=== PATIENT | male | born 1935 | race Caucasian/White ===

== ENCOUNTER → 2017-07-08 | Outpatient (CLI) | payer OTHER, BC | LOC: FIMAGING 13:14 | PROVIDERS: ATTEND Internal Medicine | DX: S42.291A Other displaced fracture of upper end of right humerus, initial encounter for closed fracture (principal); G31.9 Degenerative disease of nervous system, unspecified ==

== ENCOUNTER 2017-07-09 16:14 | Inpatient (IN) | payer OTHER, BC ==
--- NOTE | 2017-07-09 16:47 | EDPHY ---
H & P Stated Complaint: fall - Personal History Current Tetanus/Diphtheria Vaccine: Unsure Current Tetanus Diphtheria and Acellular Pertussis (TDAP): Unsure - Medical/Surgical History Hx Asthma: No Hx Chronic Respiratory Disease: No Hx Diabetes: No Hx Cardiac Disease: No Hx Renal Disease: No Hx Cirrhosis: No Hx Alcoholism: No Hx HIV/AIDS: No Hx Splenectomy or Spleen Trauma: No Other PMH: alzheimers, prostate CA - Social History Smoking Status: Never smoked Time Seen by Provider: 07/09/17 16:29 Constitutional: Initial Vital Signs Heart Rate 75 07/09/17 16:21 Respiratory Rate 16 07/09/17 16:21 Blood Pressure 114/72 07/09/17 16:21 O2 Sat (%) 98 07/09/17 16:21 O2 Delivery Mode Room Air Allergies/Adverse Reactions: No Known Allergies Allergy (Unverified 07/09/17 18:42) Home Medications: Medication Instructions Recorded Alendronate Sodium [Fosamax 70 MG 70 mg PO SPRAGUE@0700 07/09/17 (*)] Aspirin [Aspirin 81mg (*)] 81 mg PO DAILY 07/09/17 Escitalopram Oxalate [Lexapro] 20 mg PO DAILY 07/09/17 Herbals/Supplements -Info Only 1 ea PO DAILY 07/09/17 Ibuprofen [Motrin (*)] 400 mg PO Q6 PRN 07/09/17 Multivitamins [Multivitamin (*)] 1 each PO DAILY 07/09/17 [place]-3 Ethyl Est-Lovaza [Lovaza 1 1 gm PO DAILY 07/09/17 gm (*)] Medical Decision Making - Diagnostics Imaging: Discussed imaging studies w/ body recall instructor Radiologist, I viewed and interpreted images myself - Diagnostics Imaging Results: Imaging Impressions Head CT 07/09/17 16:30 Impression: 1. No acute intracranial findings. 2. Unchanged diffuse cerebral atrophy with periventricular and subcortical predominant white matter changes compatible with chronic small vessel ischemia. Findings and recommendations discussed with Jamaal Vinson MD at 1654 hour, . Extremity CT 07/09/17 16:32 Impression: Comminuted right humeral neck fracture with displaced fractures of the greater and lesser tuberosities (Neer 2 classification). Procedures: 5:15 p.m. My involvement the care this patient is solely for procedure. Please see the note of the attending physician for all other aspects of care. I Was asked to see the patient for the scalp laceration. Laceration did need to be closed with stevo. I have anesthetize the wound. It was copiously irrigated. I then closed the wound with good approximation wound border. This was tolerated without complication. We discussed wound care. We discussed staple removal in 10 days here at this facility. PROCEDURE: Laceration repair Consent: Verbal Location: Posterior scalp, just below the occiput Length of repair: 3 cm Complexity: Complex Layer involvement: Single Anesthesia: Local per 1% lidocaine with epinephrine. 5 mL Irrigation: Extensive Debridement: None Procedure description: Following good anesthesia, the wound was copiously irrigated. Wound bed was explored with a sterile glove, and there is no foreign body noted. No compromise of the galea. No foreign body.. Wound borders were approximated well with good hemostasis. Tolerated well without complication. Suture/Staple material: Stevo, #4 Wound care: Routine as discussed Suture/Staple removal: 10 Days ([place]) ED Course/Re-evaluation: CHIEF COMPLAINT: Head laceration, frequent falls, syncope, CT of broken right humerus HISTORY OF PRESENT ILLNESS: The patient is an 81 y/o male with a history of Alzheimer's disease arriving for multiple falls, fractured right proximal humerus, and a head laceration. The patient resides with his . Yesterday, he had a syncopal event, and fell, resulting in a fractured proximal humerus. At that time, he was evaluated as an outpatient and determined to have a fractured proximal humerus. Today, Dr. Johnson sent him to the emergency department for a CT to further evaluate fracture. His reports that the syncopal episodes have been frequent over the past few days and that he fell again this morning, which resulted in a laceration to the occiput. She reports she has not been able to sleep in 24 hours due to him needing monitoring for falls and his frequently getting up from bed. Information obtained from his due to the patient's Alzheimer's disease. REVIEW OF SYSTEMS: A 10 point review of systems was performed and is negative with the exception of the elements mentioned in the history of present illness. PHYSICAL EXAM: HR, BP, O2 Sat, RR. Temp noted General Appearance: Alert, well hydrated, appropriate, and non-toxic appearing. Head: 3cm transverse laceration to the occiput, not bleeding Eyes: Pupils equal, round, reactive to light and accommodation, EOMI, no trauma , no injection. Ears: Clear bilaterally, no perforation, normal landmarks Nose: Atraumatic, no rhinorrhea, clear. Throat: There is no erythema or exudates, no lesions, normal tonsils, mucus membranes moist. Neck: Supple, 2+ carotid upstroke, nontender, no lymphadenopathy. Respiratory: No retractions, no distress, no wheezes, and no accessory muscle use. Lungs are clear to auscultation bilaterally. Cardiovascular: Regular rate and rhythm, no murmurs, rubs, or gallops. Bilateral carotid, radial, dorsalis pedis, and posterior tibial pulses intact. Good capillary refill all extremities. Gastrointestinal: Abdomen is soft, nontender, non-distended, no masses, no rebound, no guarding, no peritoneal signs. Musculoskeletal: Right shoulder deformed. Neurological: Alert, appropriate, and interactive. Skin: No rashes, good turgor, no nodules on palpation. Past medical history: Alzheimer's disease Past surgical history: Denies Family history: Non-contributory Social history: at bedside, lives in [place], retired DIAGNOSTICS/PROCEDURES/CRITICAL CARE TIME: The 12 lead EKG was interpreted by myself. Sinus mechanism, rate 70. See hard copy and/or "tracemaster" electronic copy for interpretation. DIFFERENTIAL DIAGNOSIS: The differential diagnosis for the patient's dizziness included but was not limited to peripheral and central causes of vertigo, orthostatic causes including dehydration, cardiogenic and neurogenic causes, and blood loss. MEDICAL DECISION MAKING: The patient presents with a transverse laceration to the occiput and a proximal humeral head fracture after several syncopal events with falls in the last two days. He was evaluated as an outpatient for a fall yesterday, and was diagnosed with a proximal humeral head fracture. The orthopedic surgeon involved in care requested a CT to determine treatment needs. His fall today resulted in the transverse occipital laceration. His reports that he has been having more syncopal events and falls recently, prompting her to not be able to sleep in the last 24 hours due to her need to provide care. Information obtained through . Plan for EKG, urinalysis, urine culture, CBC, basic metabolic panel, CT of head and right upper extremity without contrast. 1658: The patient's head CT is negative for acute findings. His right shoulder will be treated by ortho. Laceration has been repaired by [facility]. Due to his frequent falls and the burden of care the is experiencing, I feel he will need to be admitted so that a care plan with more aid for the can be established. She agrees to this course of treatment but is concerned that he be monitored constantly as he is prone to wandering. Dr. Fitzpatrick will be the admitting physician. He will have a sitter coordinated with the nurses on the floor. (Jamaal Vinson) Departure - Departure Disposition: [facility] In[facility] Acute Clinical Impression: Frequent falls Syncope Qualifiers: Syncope type: unspecified Qualified Code(s): R55 - Syncope and collapse Broken shoulder Qualifiers: Encounter type: initial encounter Fracture type: closed Laterality: right Qualified Code(s): S42.91XA - Fracture of right shoulder girdle, part unspecified, initial encounter for closed fracture Laceration of head Qualifiers: Encounter type: initial encounter Location of open wound of head: scalp Foreign body presence: without foreign body Qualified Code(s): S01.01XA - Laceration without foreign body of scalp, initial encounter Condition: Fair Report Scribed for: Jamaal Vinson Report Scribed by: Shantel Wooten Date of Report: 07/09/17 Time of Report: 17:00
[2017-07-09 17:55] LABS: PLATELET COUNT 209 10^3/uL (150-400)
--- NOTE | 2017-07-09 18:40 | CPEKG ---
Heart Rate: 70 RR Interval: 857 P-R Interval: 156 QRSD Interval: 90 QT Interval: 404 QTC Interval: 436 P [place]: 52 QRS [place]: 47 T Wave [place]: 39 EKG Severity - OTHERWISE NORMAL ECG - EKG Impression: SINUS RHYTHM EKG Impression: LOW VOLTAGE IN FRONTAL LEADS Electronically Signed By: James Okeefe 09-Jul-2017 20:34:44
[2017-07-09] MEDS ORDERED: ONDANSETRON DISINTEGRATING 4 MG TAB PO PRN (20:17)
[2017-07-09] MEDS ORDERED: ONDANSETRON 4 MG/2 ML VIAL IVP PRN (20:17)
[2017-07-09] MEDS ORDERED: ACETAMINOPHEN 325 MG TAB PO PRN (20:17)
[2017-07-09] MEDS ORDERED: NS 1,000 ML IV SCH (20:30)
--- NOTE | 2017-07-09 21:08 | GHP ---
[f rep st] HISTORY AND PHYSICAL DATE OF ADMISSION: 07/09/2017 HISTORY OF PRESENT ILLNESS: The patient is an 81-year-old gentleman with a history of Alzheimer scooter ntia who has had 2 falls. He had a fall yesterday where he was getting up and he fell and he landed on his right side, hitting his arm and his head. According to his , from whom I obtained most of the history, he had a brief episode of loss of consciousness thereafter and then he came to spontane ously. She felt his pulse became thready during that time. Following a 2nd fall today, she brought him to a primary care physician and then an orthopedist, where he was diagnosed with a right humerus fracture. During his 2nd fall, he also had loss of consciousness thereafter with transient loss of p ulse, according to his . He has minimal cardiopulmonary morbidity but does have a history of Alz heimer dementia and has a hard time with ADLs. His confirms a do not resuscitate status, but it sounds like this is the 1st time that discussion has been had. REVIEW OF SYSTEMS: Complete 10-point review of systems conducted. Negative except as noted in the H PI. PAST MEDICAL HISTORY: Hyperlipidemia and osteoporosis. ALLERGIES: There are no known drug allergies. HOME MEDICATIONS: Alendronate, aspirin, ibuprofen, escitalopram, multivitamin, and fish oil. SOCIAL HISTORY: Rare alcohol. No tobacco. Lives with his . Do not resuscitate. FAMILY HISTORY: Parents are . PHYSICAL EXAMINATION: VITAL SIGNS: Temp 37, blood pressure 110/73, pulse 69, breathing 16 times a m inute, 94% on room air. GENERAL: In no acute distress. EYES: Sclerae are anicteric. OROPHARYNX: Clear. Mucous membranes are moist. NECK: Supple, without lymphadenopathy or JVD. LUNGS: Clear t o auscultation bilaterally. HEART: S1, S2 without murmurs. ABDOMEN: Soft, nontender, nondistended . LOWER EXTREMITIES: Without edema. RIGHT UPPER EXTREMITY: He has a significant amount of bruisin g around the proximal humerus. His radial pulse is intact. His hand is neurovascularly intact, with capillary refill. NEUROLOGIC: The patient is alert and oriented to himself only. He does not know that this is the hospital. He is speaking tangentially. He is alert, but he is not oriented to glenn ce. LABORATORIES: Sodium 141, potassium 4.4, chloride 102, bicarb 26, BUN 18, creatinine 0.9, glucose 10 1. White count is 7.4. Hematocrit is 37; this is below his baseline. Platelets are 209,000. A noncontrast head CT shows atrophy that is unchanged. Extremity CT shows comminuted right humeral neck fracture with displaced fractures of the greater and lesser tuberosities. This is a Neer II classification. EKG interpreted by me shows sinus at 70, with normal axis and intervals. There are no ST- or T-wave changes. I have discussed the case with Dr. Jamaal Vinson. ASSESSMENT AND PLAN: 81-year-old gentleman with fall, humerus fracture, and syncope. 1. Syncope: Patient has a normal EKG. I will cycle his troponins, follow him on telemetry. He chapman s not have a systolic murmur, so echocardiogram can be withheld. 2. Humerus fracture: This likely warrants surgery as it is a surgical neck fracture. Dr. Saúl England has seen him in clinic and can follow up on him on the , but he will need to be called. 3. Prophylaxis: Pharmacologic prophylaxis is indicated. 4. Scheduled Tylenol, as needed ibuprofen. CODE: Do not resuscitate. This is a new finding. DISPOSITION: Inpatient status. /[id number]/MODL
[2017-07-09] MEDS: ACETAMINOPHEN 500 MG TAB PO SCH (22:10)
[2017-07-09] MEDS ORDERED: diphenhydrAMINE 25 MG CAP PO PRN (23:40)
[2017-07-10 05:19] LABS: PLATELET COUNT 189 10^3/uL (150-400)
[2017-07-10 05:37] LABS: INR 1.07 (0.83-1.16); PROTIME(PATIENT) 14.1 SEC (12.0-15.0)
[2017-07-10] MEDS: ACETAMINOPHEN 500 MG TAB PO SCH ×3 (06:05→21:18)
[2017-07-10] MEDS ORDERED: ESCITALOPRAM OXALATE 10 MG TAB PO SCH (09:00)
[2017-07-10] MEDS ORDERED: Herbals/Supplements -Info Only PO SCH (09:00)
[2017-07-10] MEDS ORDERED: OMEGA-3 ETHYL EST-LOVAZA 1 GM CAP PO SCH (09:00)
[2017-07-10] MEDS: IBUPROFEN 200 MG TAB PO PRN ×2 (10:04→16:16)
[2017-07-10] MEDS: MULTIVITAMINS 1 EACH TAB PO SCH (10:33)
--- NOTE | 2017-07-10 12:39 | ASMTCMCOM ---
CM Note CM Note Notes: Met with pt's Reina, PT/OT recommend SNF. Her first choice is [facility], 2nd choice is [facility]. Referrals sent. DC Plan: SNF Date Signed: 07/10/2017 12:37 PM Electronically Signed By:Jessica Peralta RN
--- NOTE | 2017-07-10 13:31 | HOSPPROG ---
Hospitalist Progress Note Assessment/Plan: 81y male with c/o arm pain. First encounter, chart reviewed. #R humeral fx -ortho consult pending -?surgical intervention #Pain -support #Alz -at baseline #Dispo -unclear -needs further care in hospital Subjective: In chair. Feels well. No complaints. Objective: Vital Signs Temp Pulse Resp BP Pulse Ox 36.4 C 65 12 119/70 95 07/10/17 07:50 07/10/17 07:50 07/10/17 07:50 07/10/17 07:50 07/10/17 07:50 Laboratory Results 07/10/17 04:24 07/10/17 04:24 07/09/17 07/10/17 07/11/17 05:59 05:59 05:59 Output Total 275 Balance -275 PT 14.1 SEC (12.0-15.0) 07/10/17 04:24 INR 1.07 (0.83-1.16) 07/10/17 04:24 - Physical Exam Constitutional: no apparent distress, appears nourished, not in pain Eyes: PERRL, anicteric sclera, EOMI Ears, Nose, Mouth, Throat: moist mucous membranes, hearing normal, ears appear normal Cardiovascular: regular rate and rhythym, No JVD, No edema Respiratory: no respiratory distress, no rales or rhonchi, clear to auscultation Gastrointestinal: normoactive bowel sounds, No tenderness, No ascites Skin: warm, normal color, No mottled Musculoskeletal: joint tenderness, pain with ROM, generalized weakness Psychiatric: not anxious, poor insight, poor judgement, poor memory, No thought process linear ICD10 Worksheet Patient Problems: Problems Problem Status Onset Syncope Acute Broken shoulder Acute Frequent falls Acute Laceration of head Acute
--- NOTE | 2017-07-10 14:05 | SOAPPROG ---
VIGNESH Progress Note Assessment/Plan: Assessment: R proximal humerus fx greater and lesser tuberosity fx Plan: I discussed the CT and my findings with his . I think he would benefit from ORIF of the proximal humerus to preserve his rotator cuff function. His surgical neck fx is well aligned and should heal. I am concerned about his mental status and the anesthetic risk associated with this however. She would like to think about this and let me know. She is leaning toward surgery. I have him tenatively scheduled for Thursday for ORIF of R proximal humerus 07/10/17 14:02 Subjective: pain in right shoulder Objective: Vital Signs Temp Pulse Resp BP Pulse Ox 36.4 C 64 17 100/66 97 07/10/17 07:50 07/10/17 12:00 07/10/17 12:00 07/10/17 12:00 07/10/17 12:00 Laboratory Results 07/10/17 04:24 07/10/17 04:24 07/09/17 07/10/17 07/11/17 05:59 05:59 05:59 Output Total 275 Balance -275 PT 14.1 SEC (12.0-15.0) 07/10/17 04:24 INR 1.07 (0.83-1.16) 07/10/17 04:24 ttp R shoulder nvi hand ICD10 Worksheet Patient Problems: Problems Problem Status Onset Broken shoulder Acute Frequent falls Acute Laceration of head Acute Syncope Acute
--- NOTE | 2017-07-10 14:56 | GCON ---
[f rep st] CONSULTATION DATE OF CONSULTATION: 07/10/2017 HISTORY OF PRESENT ILLNESS: An 81-year-old gentleman I saw yesterday in my clinic. He had 2 falls o n consecutive days. He had been seen in the emergency room the day prior after the first fall and di agnosed with a right proximal humerus fracture. He had fallen again that morning and had not sought care for another fall with loss of consciousness. I instructed him and his , who is his caretake r, to take him to the emergency room for further evaluation of second head trauma and multiple falls. We will also obtain a CT scan of his humerus. He then made it to the hospital. His pain is now mo re stabilized in the arm. Still complains of shoulder pain. He is sitting in a chair today. REVIEW OF SYSTEMS: A 10-point review of systems conducted with his , negative other than above. PAST MEDICAL HISTORY: Hyperlipidemia, osteoporosis. ALLERGIES: No known drug allergies. HOME MEDICATIONS: Alendronate, aspirin, ibuprofen, citalopram, multivitamin. SOCIAL HISTORY: Rare alcohol. No tobacco. FAMILY HISTORY: Parents . PHYSICAL EXAMINATION: GENERAL: He is alert. He is confused. He does not appear distressed. VITAL SIGNS: Stable. HEENT: Eyes are equal and reactive. His mouth shows moist mucous membranes. Face is atraumatic. NECK: Supple. LUNGS: Symmetric chest rise. HEART: Regular rate and rhythm. ABDO MEN: Soft. EXTREMITIES: The right upper extremity he has some bruising and tenderness about the hu merus and the arm. He appears to have ruptured the long head of his biceps, he is tender over the sh oulder. Internal and external rotation did cause him some discomfort. I did not attempt to abduct t his. On neurovascular testing he had 5/5 finger and wrist strength. Left upper extremity moved well with 5/5 strength. Good pulses and reports sensation. Lower extremities are atraumatic without abn ormality. IMAGING: His x-rays and CT showed proximal humerus fracture with displaced greater tuberosity and le sser tuberosity fragment, a surgical neck fracture appears minimally displaced. ASSESSMENT: Four part proximal humerus fracture. PLAN: I discussed his condition and treatment options with him and particularly his , who is his caregiver. I discussed that in order to preserve shoulder and rotator function, would likely requir e an ORIF of the shoulder, particularly of the great and lesser tuberosity. We would also stabilize his surgical neck fracture if he would undergo surgery. I am, however, worried about his mental stat us with his Alzheimer's and potential anesthesia risks with this. I think he would benefit from surg jasmeet for preserve shoulder function in the future, however. I discussed risks including nonunion, mal union, continued pain, infection, nerve injury, as well as decreased mental status following surgery, permanent cognitive impairment, heart attack, stroke, , and blood clot. She would like to thin k about her options and let me know. I have him tentatively scheduled for surgery on Thursday for an ORIF of proximal humerus. /[id number]/MODL
--- NOTE | 2017-07-10 15:44 | ASMTCMCOM ---
CM Note CM Note Notes: Update: Spoke w/pt's to let her know pt accepted into [facility], she states that pt may have surgery on Thursday. CM notified Montez at , she states will work with pt whenever he is ready to discharge. DC Plan: [facility]/ [facility] Date Signed: 07/10/2017 03:43 PM Electronically Signed By:Jessica Peralta RN
--- NOTE | 2017-07-10 16:18 | PDMN ---
Medical Necessity Medical necessity: Pt meets IP criteria per MD; est los >2 mn for eval/tx of R humerus fx & head laceration r/t syncope & resultant falls; admit for further workup/monitoring, Ortho consult & therapies; hx Alzheimers' per H&P & order
[2017-07-11] MEDS: IBUPROFEN 200 MG TAB PO PRN ×3 (01:34→19:44)
[2017-07-11] MEDS: ACETAMINOPHEN 500 MG TAB PO SCH ×3 (05:40→23:09)
[2017-07-11] MEDS: MULTIVITAMINS 1 EACH TAB PO SCH (07:52)
[2017-07-11] MEDS: OMEGA-3 ETHYL EST-LOVAZA 1 GM CAP PO SCH (07:52)
[2017-07-11] MEDS: ESCITALOPRAM OXALATE 10 MG TAB PO SCH (07:52)
--- NOTE | 2017-07-11 09:15 | SOAPPROG ---
SOAP Progress Note Assessment/Plan: Assessment: R proximal humerus fx greater and lesser tuberosity fx Plan: Will plan on ORIF R humerus fx on thursday pendulum excersises ok on RU NWB RUE Subjective: confused Objective: Vital Signs Temp Pulse Resp BP Pulse Ox 36.4 C 66 20 116/69 92 07/11/17 07:12 07/11/17 07:12 07/11/17 07:12 07/11/17 07:12 07/11/17 07:12 Laboratory Results 07/10/17 04:24 07/10/17 04:24 07/10/17 07/11/17 07/12/17 05:59 05:59 05:59 Output Total 275 Balance -275 PT 14.1 SEC (12.0-15.0) 07/10/17 04:24 INR 1.07 (0.83-1.16) 07/10/17 04:24 R shoulder ttp ICD10 Worksheet Patient Problems: Problems Problem Status Onset Broken shoulder Acute Frequent falls Acute Laceration of head Acute Syncope Acute
--- NOTE | 2017-07-11 09:49 | HOSPPROG ---
Hospitalist Progress Note Assessment/Plan: 81y male with c/o arm pain. First encounter, chart reviewed. #R humeral fx -ortho consult pending -?surgical intervention #Pain -support #Alz -at baseline #Dispo -unclear -needs further care in hospital code: dnr- new on this admit Subjective: remains confused; i suspect at baseline Objective: Vital Signs Temp Pulse Resp BP Pulse Ox 36.4 C 66 20 116/69 92 07/11/17 07:12 07/11/17 07:12 07/11/17 07:12 07/11/17 07:12 07/11/17 07:12 Laboratory Results 07/10/17 04:24 07/10/17 04:24 07/10/17 07/11/17 07/12/17 05:59 05:59 05:59 Output Total 275 Balance -275 PT 14.1 SEC (12.0-15.0) 07/10/17 04:24 INR 1.07 (0.83-1.16) 07/10/17 04:24 - Physical Exam Constitutional: no apparent distress, appears nourished Eyes: PERRL, anicteric sclera Ears, Nose, Mouth, Throat: moist mucous membranes, hearing normal Cardiovascular: regular rate and rhythym, no murmur, rub, or gallop Respiratory: no respiratory distress, no rales or rhonchi Gastrointestinal: normoactive bowel sounds, soft, non-tender abdomen Genitourinary: no bladder fullness Skin: warm Musculoskeletal: other (R hand neurovascularly intact) Neurologic: No AAOx3 Psychiatric: No interacting appropriately ICD10 Worksheet Patient Problems: Problems Problem Status Onset Broken shoulder Acute Frequent falls Acute Laceration of head Acute Syncope Acute
[2017-07-12] MEDS: ACETAMINOPHEN 500 MG TAB PO SCH ×3 (06:06→21:28)
[2017-07-12] MEDS: ESCITALOPRAM OXALATE 10 MG TAB PO SCH (09:01)
[2017-07-12] MEDS: MULTIVITAMINS 1 EACH TAB PO SCH (09:04)
[2017-07-12] MEDS: OMEGA-3 ETHYL EST-LOVAZA 1 GM CAP PO SCH (09:05)
[2017-07-12] MEDS: IBUPROFEN 200 MG TAB PO PRN ×3 (10:09→23:47)
--- NOTE | 2017-07-12 12:22 | HOSPPROG ---
Hospitalist Progress Note Assessment/Plan: 81y male with c/o arm pain. First encounter, chart reviewed. #R humeral fx -ortho consult pending -?surgical intervention #Pain: scheduled tylenol and prn ibuprofen #Alz -at baseline #Dispo -unclear -needs further care in hospital code: dnr- new on this admit Subjective: no complaints. alert Objective: Vital Signs Temp Pulse Resp BP Pulse Ox 36.9 C 76 16 110/66 95 07/12/17 11:29 07/12/17 11:29 07/12/17 11:29 07/12/17 11:29 07/12/17 11:29 Laboratory Results 07/10/17 04:24 07/10/17 04:24 PT 14.1 SEC (12.0-15.0) 07/10/17 04:24 INR 1.07 (0.83-1.16) 07/10/17 04:24 - Physical Exam Constitutional: no apparent distress, appears nourished Eyes: PERRL, anicteric sclera Ears, Nose, Mouth, Throat: moist mucous membranes, hearing normal Cardiovascular: regular rate and rhythym, no murmur, rub, or gallop Respiratory: no respiratory distress, no rales or rhonchi Gastrointestinal: normoactive bowel sounds Genitourinary: no bladder fullness, No henry in urethra Skin: warm Musculoskeletal: full muscle strength ICD10 Worksheet Patient Problems: Problems Problem Status Onset Broken shoulder Acute Frequent falls Acute Laceration of head Acute Syncope Acute
[2017-07-13] MEDS: ACETAMINOPHEN 500 MG TAB PO SCH ×3 (05:48→21:52)
[2017-07-13] MEDS: MULTIVITAMINS 1 EACH TAB PO SCH (09:22)
[2017-07-13] MEDS: ESCITALOPRAM OXALATE 10 MG TAB PO SCH (09:22)
[2017-07-13] MEDS: IBUPROFEN 200 MG TAB PO PRN ×2 (09:26→19:48)
[2017-07-13] MEDS: OMEGA-3 ETHYL EST-LOVAZA 1 GM CAP PO SCH (09:45)
--- NOTE | 2017-07-13 14:47 | ASMTCMCOM ---
CM Note CM Note Notes: Pt scheduled for surgery tomorrow. DC plan still to rehab at [facility]. Spoke w/Rey today at who said they will most likely have bed for him. Discussed w/pt's , informed her we cannot guarantee bed at but likely they will have one per rey. Also, pt's requesting hopsital records from this admission as well as CD w/images; she is not here at this time but can sign release tomorrow. CM will follow. Date Signed: 07/13/2017 02:46 PM Electronically Signed By:Noemi Santiago RN
--- NOTE | 2017-07-13 16:03 | HOSPPROG ---
Hospitalist Progress Note Assessment/Plan: 81y male with c/o arm pain. First encounter, chart reviewed. #R humeral fx -ortho consult pending surgery 07/14 #Pain: scheduled tylenol and prn ibuprofen #Alz -at baseline #Dispo -unclear -needs further care in hospital code: dnr- new on this admit Subjective: doing well. no complaints Objective: Vital Signs Temp Pulse Resp BP Pulse Ox 36.8 C 76 13 127/76 H 96 07/13/17 15:54 07/13/17 15:54 07/13/17 15:54 07/13/17 15:54 07/13/17 15:54 Laboratory Results 07/10/17 04:24 07/10/17 04:24 07/12/17 07/13/17 07/14/17 05:59 05:59 05:59 Intake Total 250 Balance 250 PT 14.1 SEC (12.0-15.0) 07/10/17 04:24 INR 1.07 (0.83-1.16) 07/10/17 04:24 - Physical Exam Constitutional: no apparent distress, appears nourished Eyes: PERRL, anicteric sclera Ears, Nose, Mouth, Throat: moist mucous membranes, hearing normal Cardiovascular: regular rate and rhythym, no murmur, rub, or gallop Respiratory: no respiratory distress, no rales or rhonchi Gastrointestinal: normoactive bowel sounds Genitourinary: no bladder fullness, No henry in urethra Skin: warm, normal color Musculoskeletal: full muscle strength Neurologic: AAOx3 ICD10 Worksheet Patient Problems: Problems Problem Status Onset Broken shoulder Acute Frequent falls Acute Laceration of head Acute Syncope Acute
--- NOTE | 2017-07-13 18:29 | SOAPPROG ---
SOAP Progress Note Assessment/Plan: Assessment: R proximal humerus fx greater and lesser tuberosity fx Plan: Will plan on ORIF R humerus fx tomorrow 12:30 pendulum excersises ok on RUE NWB RUE 07/13/17 18:28 Objective: Vital Signs Temp Pulse Resp BP Pulse Ox 36.8 C 76 13 127/76 H 96 07/13/17 15:54 07/13/17 15:54 07/13/17 15:54 07/13/17 15:54 07/13/17 15:54 Laboratory Results 07/10/17 04:24 07/10/17 04:24 07/12/17 07/13/17 07/14/17 05:59 05:59 05:59 Intake Total 250 Balance 250 PT 14.1 SEC (12.0-15.0) 07/10/17 04:24 INR 1.07 (0.83-1.16) 07/10/17 04:24 ICD10 Worksheet Patient Problems: Problems Problem Status Onset Broken shoulder Acute Frequent falls Acute Laceration of head Acute Syncope Acute
[2017-07-14] MEDS: IBUPROFEN 200 MG TAB PO PRN (02:04)
[2017-07-14] MEDS: ACETAMINOPHEN 500 MG TAB PO SCH ×3 (05:12→21:06)
--- NOTE | 2017-07-14 09:00 | HOSPPROG ---
Hospitalist Progress Note Assessment/Plan: 81y male with c/o arm pain. First encounter, chart reviewed. #R humeral fx surgery today #Pain: scheduled tylenol and prn ibuprofen #gait instability resulting in fall -PT and OT #Alzheimer -at baseline #DVT prophylaxis -will need to be initiated post op *plan: has isauro on occipital part of his head that will need removal. His cares for him at home and this has been overwhelming, he may need a higher level of care. Subjective: Nino has no complaints. Objective: Vital Signs Temp Pulse Resp BP Pulse Ox 36.1 C 70 15 130/74 H 94 07/14/17 07:24 07/14/17 07:24 07/14/17 07:24 07/14/17 07:24 07/14/17 07:24 Laboratory Results 07/10/17 04:24 07/10/17 04:24 07/13/17 07/14/17 07/15/17 05:59 05:59 05:59 Intake Total 250 Balance 250 PT 14.1 SEC (12.0-15.0) 07/10/17 04:24 INR 1.07 (0.83-1.16) 07/10/17 04:24 - Physical Exam Constitutional: no apparent distress, appears nourished Eyes: PERRL Ears, Nose, Mouth, Throat: hearing normal Cardiovascular: regular rate and rhythym Respiratory: no respiratory distress Skin: warm Musculoskeletal: generalized weakness Neurologic: other (alert) Psychiatric: poor insight, poor judgement, poor memory ICD10 Worksheet Patient Problems: Problems Problem Status Onset Broken shoulder Acute Frequent falls Acute Laceration of head Acute Syncope Acute
[2017-07-14] MEDS: ESCITALOPRAM OXALATE 10 MG TAB PO SCH (11:32)
[2017-07-14] MEDS: MULTIVITAMINS 1 EACH TAB PO SCH (11:32)
[2017-07-14] MEDS: OMEGA-3 ETHYL EST-LOVAZA 1 GM CAP PO SCH (11:33)
[2017-07-14] MEDS ORDERED: BUPIVACAINE 0.25% 30 ML SDV ONE (11:52)
[2017-07-14] MEDS ORDERED: ceFAZolin 2 GM/SWFI 2 GM/20 ML SYR IVP ONE (12:04)
--- NOTE | 2017-07-14 12:04 | SOAPPROG ---
SOAP Progress Note Assessment/Plan: Assessment: R proximal humerus fx greater and lesser tuberosity fx Plan: ORIF R humerus fx His understands risk, particularly of post op confusion and mental deterioration 07/13/17 18:28 07/14/17 12:03 Subjective: pain in shoulder Objective: Vital Signs Temp Pulse Resp BP Pulse Ox 36.1 C 70 15 130/74 H 94 07/14/17 07:24 07/14/17 07:24 07/14/17 07:24 07/14/17 07:24 07/14/17 07:24 Laboratory Results 07/10/17 04:24 07/10/17 04:24 07/13/17 07/14/17 07/15/17 05:59 05:59 05:59 Intake Total 250 Balance 250 PT 14.1 SEC (12.0-15.0) 07/10/17 04:24 INR 1.07 (0.83-1.16) 07/10/17 04:24 ttp R shoulder ICD10 Worksheet Patient Problems: Problems Problem Status Onset Broken shoulder Acute Frequent falls Acute Laceration of head Acute Syncope Acute
--- NOTE | 2017-07-14 12:16 | PDANEPAE ---
ANE History of Present Illness R humerus fx here for ORIF ANE Past Medical History - Pulmonary History Hx Oxygen in Use at Home: No Hx Sleep Apnea: No Sleep Apnea Screening Result - Last Documented: Negative - Endocrine History Hx Diabetes: No - Neurological & Psychiatric Hx Hx Neurological and Psychiatric Disorders: Yes Neurological / Psychiatric History Comment: Alzheimers dx - Chronic Pain History Chronic Pain: No ANE Review of Systems Review of Systems: - Exercise capacity Exercise capacity: >=4 METS ANE Patient History - Allergies Allergies/Adverse Reactions: No Known Allergies Allergy (Unverified 07/09/17 18:42) - Home Medications Home Medications: Alendronate Sodium [Fosamax 70 MG (*)] 70 mg PO SPRAGUE@0700 07/09/17 [Last Taken Unknown] Aspirin [Aspirin 81mg (*)] 81 mg PO DAILY 07/09/17 [Last Taken Unknown] Escitalopram Oxalate [Lexapro] 20 mg PO DAILY 07/09/17 [Last Taken Unknown] Herbals/Supplements -Info Only 1 ea PO DAILY 07/09/17 [Last Taken Unknown] Ibuprofen [Motrin (*)] 400 mg PO Q6 PRN 07/09/17 [Last Taken Unknown] Multivitamins [Multivitamin (*)] 1 each PO DAILY 07/09/17 [Last Taken Unknown] [place]-3 Ethyl Est-Lovaza [Lovaza 1 gm (*)] 1 gm PO DAILY 07/09/17 [Last Taken Unknown] - NPO status NPO Status: no food or drink >8 hours - Anes Hx Anes Hx: no prior problems - Smoking Hx Smoking Status: Never smoked - Alcohol Use Alcohol Use: None - Family Anes Hx Family Anes Hx: none ANE Labs/Vital Signs - Labs Result Diagrams: 07/10/17 04:24 07/10/17 04:24 - Vital Signs Blood Pressure: 130/74 Heart Rate: 70 Respiratory Rate: 15 O2 Sat (%): 94 Height: 170.18 cm Weight: 72.575 kg ANE Physical Exam - Airway Neck exam: FROM Mallampati Score: Class 3 - Pulmonary Pulmonary: no respiratory distress - Cardiovascular Cardiovascular: regular rate and rhythym - ASA Status ASA Status: III ANE Anesthesia Plan Anesthesia Plan: general endotracheal anesthesia Regional Anesthesia: single shot NB, supraclavicular BP NB
[2017-07-14] MEDS ORDERED: LIDOCAINE 1% 2 ML INJ ID PRN (12:19)
[2017-07-14] MEDS ORDERED: LR 1,000 ML IV ONE (12:19)
[2017-07-14] MEDS ORDERED: PROPOFOL 200 MG/20 ML VIAL ONE (12:34)
[2017-07-14] MEDS ORDERED: fentaNYL 100 MCG/2 ML INJ ONE (12:34)
[2017-07-14] MEDS ORDERED: LIDOCAINE 2% 100 MG/5 ML SYR ONE (12:35)
[2017-07-14] MEDS ORDERED: PHENYLEPHRINE HCL 100 MCG/ML SYR ONE ×2 (13:42→14:07)
[2017-07-14] MEDS ORDERED: ONDANSETRON 4 MG/2 ML VIAL ONE (13:46)
[2017-07-14] MEDS ORDERED: DEXAMETHASONE 4 MG/ML VIAL ONE (13:46)
[2017-07-14] MEDS ORDERED: oxyCODONE IR 5 MG TAB PO PRN (14:41)
[2017-07-14] MEDS ORDERED: ONDANSETRON 4 MG/2 ML VIAL IVP PRN (14:41)
[2017-07-14] MEDS ORDERED: fentaNYL 100 MCG/2 ML INJ IVP PRN (14:41)
[2017-07-14] MEDS ORDERED: NALOXONE HCL 0.4 MG/ML INJ IVP PRN (14:41)
[2017-07-14] MEDS ORDERED: ACETAMINOPHEN 500 MG TAB PO PRN (14:41)
--- NOTE | 2017-07-14 14:41 | POSTANESTH ---
Post Anesthetic Evaluation Cardiovascular Status: Normal, Stable, Similar to Pre-Op Cond Respiratory Status: Normal, Stable, Similar to Pre-op Cond. Level of Consciousness/Mental Status: Moderately Sleepy Pain Control: Adequate, Prn Tx Ordered Nausea/Vomiting Control: Adequate, Prn Tx Ordered Complications Possibly Related to Anesthesia: None Noted
--- NOTE | 2017-07-14 14:53 | POSTOPPROG ---
Post Op Note Date of Operation: 07/14/17 Surgeon: Carlos Johnson Hvac Field Service Technician: Kaveh Anesthesiologist: Snow Anesthesia: GET(General Endotracheal) Pre-op Diagnosis: R prox humerus Post-op Diagnosis: R prox humerus Procedure: R prox humerus orif Inf/Abcess present in the surg proc area at time of surgery?: No EBL: 50-100
--- NOTE | 2017-07-14 18:57 | GOP ---
[f rep st] OPERATIVE REPORT DATE OF OPERATION: 07/14/2017 SURGEON: Carlos Johnson MD CERTIFICATION TECHNICIAN: Devin Linn SA ANESTHESIA: General with scalene block. PREOPERATIVE DIAGNOSIS: Four-part right proximal humerus fracture. POSTOPERATIVE DIAGNOSIS: Four-part right proximal humerus fracture. PROCEDURE PERFORMED: Open reduction and internal fixation, right four-part proximal humerus fracture, with open reduction and internal fixation of greater and lesser tuberosities and surgical neck fracture. FINDINGS: SPECIMENS: None. ESTIMATED BLOOD LOSS: 50 mL. INDICATIONS: This is an 81-year-old male with dementia who injured his shoulders, unknown exactly how he fell. He then was seen in the emergency room , discharged, fell again, and was seen in my clinic. I sent him to the emergency room for further evaluation. He was cleared of any significant head trauma, and admitted to the hospital. I counseled he and his , and his is his durable power of disability attorney, on operative versus nonoperative treatment. We discussed the risks of operative treatment, including a decrease in his mental status, heart attack, stroke, blood clot, , nonunion, malunion, continued pain, and weakness. We also discussed risks of nonoperative treatment, including inability to lift his arm given the nature of the fracture involving his entire rotator cuff. She elected for surgical treatment. She understood the risks, particularly to his mental status. Informed consent was obtained, all questions were answered, and he was marked preoperatively. DESCRIPTION OF PROCEDURE: He was taken to the operative suite. Anesthesia was administered, blocks were administered, and he was given intravenous Ancef. He was positioned. Bony prominences were padded. Sterilely prepped and draped in normal fashion. Time-out was performed, verifying site, side, and location, and agreement with the team. I made an anterior approach to the shoulder using the deltopectoral interval, protecting neurovascular structures, and exposed the fracture sites. I debrided these. The main surgical neck fracture remained intact. This was slightly impacted, but I did not elect to unimpact this since it was stable. I used #2 FiberWire to control the rotator cuff and the large fragments, and bring these down into place and then sandwich them onto the plate. I then held the plate in position with a cortical screw distally, and then tied to the plate in order to achieve stable fixation of the rotator cuff fragments. I then placed more cortical screws distally to sandwich the fragments between the plate and the bone, and then placed locking screws proximally to control the head fragment. This all moved as a unit and was stable. X-rays confirmed the reduction and fixation. He was taken through a range of motion, and there were no screws in the joint. He was irrigated, closed with #1 Vicryl, 2-0 Vicryl, 3-0 Quill, and Dermabond, and was taken to PACU in stable condition. IMPLANTS: Synthes proximal humerus plate, locking and nonlocking screws, as well as #2 FiberWire suture. COMPLICATIONS: None. DRAINS: None. CONDITION: Stable. /[id number]/MODL MTDD
[2017-07-15] MEDS: IBUPROFEN 200 MG TAB PO PRN (06:00)
[2017-07-15] MEDS: ACETAMINOPHEN 500 MG TAB PO SCH ×2 (06:01→14:51)
[2017-07-15 07:33] VITALS: PULSE 74
[2017-07-15] MEDS: MULTIVITAMINS 1 EACH TAB PO SCH (08:58)
[2017-07-15] MEDS: ESCITALOPRAM OXALATE 10 MG TAB PO SCH (08:58)
[2017-07-15] MEDS: OMEGA-3 ETHYL EST-LOVAZA 1 GM CAP PO SCH (08:58)
[2017-07-15] MEDS ORDERED: LACTULOSE 20 GM/30 ML UDCUP PO PRN (09:12)
[2017-07-15] MEDS ORDERED: MAGNESIUM HYDROXIDE 30 ML UDCUP PO PRN (09:12)
[2017-07-15] MEDS ORDERED: traMADol 50 MG TAB PO PRN (09:12)
[2017-07-15] MEDS ORDERED: BISACODYL 10 MG SUPP PR PRN (09:12)
[2017-07-15] MEDS ORDERED: POLYETHYLENE GLYCOL 3350 17 GM PKT PO SCH (09:15)
[2017-07-15 11:59] VITALS: BP 128/69; RESP 16; TEMP 98.5; O2SAT 94
--- NOTE | 2017-07-15 12:44 | HOSPPROG ---
Hospitalist Progress Note Assessment/Plan: 81y male with c/o arm pain. #R humeral fx s/p ORIF #Pain: scheduled tylenol and prn ibuprofen added tramadol #gait instability resulting in fall -PT and OT #Alzheimer -at baseline #DVT prophylaxis -lmwh *plan:dc to FM Subjective: Nino is smiling and happy, not c/o pain. Objective: Vital Signs Temp Pulse Resp BP Pulse Ox 36.9 C 74 16 128/69 H 94 07/15/17 11:59 07/15/17 11:59 07/15/17 11:59 07/15/17 11:59 07/15/17 11:59 Laboratory Results 07/15/17 04:25 07/10/17 04:24 07/14/17 07/15/17 07/16/17 05:59 05:59 05:59 Intake Total 1460 Balance 1460 PT 14.1 SEC (12.0-15.0) 07/10/17 04:24 INR 1.07 (0.83-1.16) 07/10/17 04:24 - Physical Exam Constitutional: no apparent distress, appears nourished Eyes: PERRL Ears, Nose, Mouth, Throat: hearing normal Respiratory: no respiratory distress Skin: warm, other (finger tips cools on right hand, but has good cms) Musculoskeletal: generalized weakness Neurologic: other (alert) Psychiatric: poor insight, poor judgement, poor memory ICD10 Worksheet Patient Problems: Problems Problem Status Onset Broken shoulder Acute Frequent falls Acute Laceration of head Acute Syncope Acute
[2017-07-15] MEDS ORDERED: ENOXAPARIN 30 MG/0.3 ML SYR SC SCH (12:45)
--- NOTE | 2017-07-15 13:09 | PDIAF ---
- Diagnosis Diagnosis: right proximal humerus fx s/p ORIF, alzheimers Code Status: Do Not Resuscitate - Medication Management Discharge Medications: Medications to Continue on Transfer Alendronate Sodium [Fosamax 70 MG (*)] 70 mg PO SPRAGUE@0700 07/09/17 [Last Taken Unknown] Escitalopram Oxalate [Lexapro] 20 mg PO DAILY 07/09/17 [Last Taken Unknown] Herbals/Supplements -Info Only 1 ea PO DAILY 07/09/17 [Last Taken Unknown] Ibuprofen [Motrin (*)] 400 mg PO Q6 PRN 07/09/17 [Last Taken Unknown] Multivitamins [Multivitamin (*)] 1 each PO DAILY 07/09/17 [Last Taken Unknown] [place]-3 Ethyl Est-Lovaza [Lovaza 1 gm (*)] 1 gm PO DAILY 07/09/17 [Last Taken Unknown] Acetaminophen [Tylenol ES 500 mg (*)] 1,000 mg PO Q8 tab 07/15/17 [Last Taken Unknown] Enoxaparin [Lovenox] 30 mg SC DAILY syr 07/15/17 [Last Taken Unknown] Polyethylene Glycol 3350 [Miralax 17 gm (*)] 17 gm PO DAILY pkt 07/15/17 [Last Taken Unknown] Sennosides/Docusate Sodium [Senokot-S] 1 - 2 tab PO BID tab 07/15/17 [Last Taken Unknown] traMADol [Ultram 50 mg (*)] 50 mg PO Q6HRS PRN tab 07/15/17 [Last Taken Unknown ] Discharge Medications: Refer to the Discharge Home Medication list for PRN reason. - Orders Services needed: Physical Therapy, Occupational Therapy Oxygen: prn Diet Recommendation: no restrictions on diet Date to Remove Sutures/[place]: 07/17/17 (occipital area of head) Activity/Weight Bearing Restrictions: activity per ortho. Sling for comfort. No lifting with right arm > 5 lbs. Make appt to f/u with Dr Johnson. Additional: aspirin 81 mg has been placed on hold. Patient has post op anemia. Resume in one week if stable. Continue lovenox until patient is more mobile. He needs assist w eating his meals because he is right hand dominant. - Labs/Radiology BMP Date: 07/17/17 HCT/HGB Date: 07/17/17 (q 3 days till stable) - Follow Up Care Current Providers and Referrals: Aniceto Leon MD [Primary Care Provider] - As per Instructions Carlos Johnson MD [Medical Doctor] -
--- NOTE | 2017-07-15 14:27 | GDS ---
[f rep st] DISCHARGE SUMMARY DISCHARGE DIAGNOSES: 1. Right humeral fracture. 2. Pain due to this. 3. Gait instability resulting in a fall. 4. Alzheimer. CONSULTATION: Dr. Johnson. BRIEF HISTORY: The patient is an 81-year-old gentleman, who has significant Alzheimer dementia, who recently had 2 falls. He fell on his right side, hitting his head and his arm. His gave his history because of his Alzheimer. He was brought to the primary care physician and then to an orthopedist, where he was diagnosed with a right humerus fracture. During the 2nd fall, he had loss of consciousness and had lost his pulse, according to his . During his stay, he has had no further syncopal episodes. Troponin were checked x2, and these were stable. HOSPITAL COURSE: 1. Right humerus fracture. He is status post ORIF. I have avoided giving him narcotics because of significant dementia. Have been giving him Tylenol scheduled, as well as some ibuprofen and tramadol. He is doing well. 2. Pain, as noted above. 3. Gait instability resulting in a fall. He will go to [facility]. 4. Alzheimer. He is at his baseline. He knows his name, but he is not really oriented to everyone else in the room. DISCHARGE CONDITION: Stable. VITAL SIGNS: Blood pressure is 128/69, respiratory rate is 16, pulse 74, temperature is 36.9 Celsius, O2 sats on room air are 95%. MEDICATIONS AT DISCHARGE: Please see the EMR. DISCHARGE INSTRUCTIONS: 1. He has isauro on the back of his head. They need to be removed on July 17. 2. Follow up appoint with Dr. Johnson. 3. Wear a sling for comfort. Five-pound weightbearing with his right hand and per Orthopedics. 4. If he develops fever, chills, or any further syncopal episodes, return to the ER. Greater than 30 minutes discharging and coordinating care. /[id number]/MODL MTDD
--- NOTE | 2017-07-15 14:32 | PDIAF ---
- Diagnosis Diagnosis: right proximal humerus fx s/p ORIF, alzheimers Code Status: Do Not Resuscitate - Medication Management Discharge Medications: Medications to Continue on Transfer Alendronate Sodium [Fosamax 70 MG (*)] 70 mg PO SPRAGUE@0700 07/09/17 [Last Taken Unknown] Escitalopram Oxalate [Lexapro] 20 mg PO DAILY 07/09/17 [Last Taken Unknown] Herbals/Supplements -Info Only 1 ea PO DAILY 07/09/17 [Last Taken Unknown] Ibuprofen [Motrin (*)] 400 mg PO Q6 PRN 07/09/17 [Last Taken Unknown] Multivitamins [Multivitamin (*)] 1 each PO DAILY 07/09/17 [Last Taken Unknown] [place]-3 Ethyl Est-Lovaza [Lovaza 1 gm (*)] 1 gm PO DAILY 07/09/17 [Last Taken Unknown] Acetaminophen [Tylenol ES 500 mg (*)] 1,000 mg PO Q8 tab 07/15/17 [Last Taken Unknown] Cephalexin [Keflex (*)] 500 mg PO QID #28 cap 07/15/17 [Last Taken Unknown] Enoxaparin [Lovenox] 30 mg SC DAILY syr 07/15/17 [Last Taken Unknown] Polyethylene Glycol 3350 [Miralax 17 gm (*)] 17 gm PO DAILY pkt 07/15/17 [Last Taken Unknown] Sennosides/Docusate Sodium [Senokot-S] 1 - 2 tab PO BID tab 07/15/17 [Last Taken Unknown] traMADol [Ultram 50 mg (*)] 50 mg PO Q6HRS PRN tab 07/15/17 [Last Taken Unknown ] Discharge Medications: Refer to the Discharge Home Medication list for PRN reason. - Orders Services needed: Physical Therapy, Occupational Therapy Oxygen: prn Diet Recommendation: no restrictions on diet Date to Remove Sutures/[place]: 07/17/17 (occipital area of head) Activity/Weight Bearing Restrictions: activity per ortho. Sling for comfort. No lifting with right arm > 5 lbs. Make appt to f/u with Dr Johnson. Additional: aspirin 81 mg has been placed on hold. Patient has post op anemia. Resume in one week if stable. Continue lovenox until patient is more mobile. He needs assist w eating his meals because he is right hand dominant. Keflex qid x one week - Labs/Radiology BMP Date: 07/17/17 HCT/HGB Date: 07/17/17 (q 3 days till stable) - Follow Up Care Current Providers and Referrals: Aniceto Leon MD [Primary Care Provider] - As per Instructions Carlos Johnson MD [Medical Doctor] -
--- NOTE | 2017-07-15 14:33 | SOAPPROG ---
VIGNESH Progress Note Assessment/Plan: Assessment: R proximal humerus fx greater and lesser tuberosity fx Plan: ORIF R humerus fx I will start keflex for potenially contaiminated batteries that the OR staff just alerted me to. I will follow the incision closely with a high index of suspicion but I believe he should be fine Activity as tolerated with RUE f/u with me in clinic as scheduled 07/13/17 18:28 07/14/17 12:03 07/15/17 14:30 Subjective: pain in right shoulder Objective: Vital Signs Temp Pulse Resp BP Pulse Ox 36.9 C 74 16 128/69 H 94 07/15/17 11:59 07/15/17 11:59 07/15/17 11:59 07/15/17 11:59 07/15/17 11:59 Laboratory Results 07/15/17 04:25 07/10/17 04:24 07/14/17 07/15/17 07/16/17 05:59 05:59 05:59 Intake Total 1460 Balance 1460 PT 14.1 SEC (12.0-15.0) 07/10/17 04:24 INR 1.07 (0.83-1.16) 07/10/17 04:24 dressing cdi ICD10 Worksheet Patient Problems: Problems Problem Status Onset Broken shoulder Acute Frequent falls Acute Laceration of head Acute Syncope Acute
--- NOTE | 2017-07-15 14:53 | ASDISCHSUM ---
Discharge Information Plan Status:SNF Medically Cleared to Leave: Discharge Date: D/C Disposition:Fdc Facility [facility] D/C Disposition: Projected Discharge Date:07/12/2017 11:00 AM Transportation at D/C:Family Discharge Delay Reason: Follow-Up Date:07/12/2017 11:00 AM Discharge Slot: Final Diagnosis: Placement Information Referral Type:*Alf/SNF Referral ID:[id number] Provider Name:[facility] Address 1:[address] Address 2: City:[place] Selection Factors: State:[place] Patient Contact Information Contact Name:HAKEEM Relationship: Address:S Work Phone: [facility]:[place] Alternate Phone: [facility]/Zip Code:[place] [address] Email: Financial Information Financial Class:Medicare Primary Plan Desc:MEDICARE INPATIENT Primary Plan Number:[id number] Secondary Plan Desc: OUT OF STATE [facility] Secondary Plan Number:[id number] Assessment Information [facility] CM Progress Note CM Note CM Note Notes: Met with pt's Reina, PT/OT recommend SNF. Her first choice is [facility], 2nd choice is [facility]. Referrals sent. DC Plan: SNF Date Signed: 07/10/2017 12:37 PM Electronically Signed By:Jessica Peralta RN BC CM Progress Note CM Note CM Note Notes: Update: Spoke w/pt's to let her know pt accepted into , she states that pt may have surgery on Thursday. CM notified Montez at , she states will work with pt whenever he is ready to discharge. DC Plan: SNF/ [facility] Date Signed: 07/10/2017 03:43 PM Electronically Signed By:Jessica Peralta RN [facility] CM Progress Note CM Note CM Note Notes: Pt scheduled for surgery tomorrow. DC plan still to rehab at [facility]. Spoke w/Montez today at who said they will most likely have bed for him. Discussed w/pt's , informed her we cannot guarantee bed at but likely they will have one per montez. Also, pt's requesting hopsital records from this admission as well as CD w/images; she is not here at this time but can sign release tomorrow. CM will follow. Date Signed: 07/13/2017 02:46 PM Electronically Signed By:Noemi Santiago RN [facility] Progress Note CM Note CM Note Notes: Pt medically stable for d/c to [facility], orders sent in [employer]. Pt wants to transport, she is provided directions. KRYSTAL Guerraidi to call report. Date Signed: 07/15/2017 02:52 PM Electronically Signed By:NARA Vuong Intervention Information Intervention Type:*IM-Signed Date of Service:07/15/2017 02:18 PM Patient Type:Inpatient Staff Member:Bri Vences Hours: Discipline: Severity: Comment:
[2017-07-15] MEDS ORDERED: SENNOSIDES/DOCUSATE SODIUM TAB PO SCH (21:00)
== END 2017-07-15 15:12 | DRG 494 ==
LOC: F3E 18:33 → F3N 07-11 16:10
PROVIDERS: ADMIT Internal Medicine; ATTEND Internal Medicine
DX: S42.241A 4-part fracture of surgical neck of right humerus, initial encounter for closed fracture (principal); S01.01XA Laceration without foreign body of scalp, initial encounter; W18.09XA Striking against other object with subsequent fall, initial encounter; Y92.009 Unspecified place in unspecified non-institutional (private) residence as the place of occurrence of the external cause; R26.81 Unsteadiness on feet; R55 Syncope and collapse; G30.9 Alzheimer's disease, unspecified; F02.80 Dementia in other diseases classified elsewhere, unspecified severity, without behavioral disturbance, psychotic disturbance, mood disturbance, and anxiety; M81.0 Age-related osteoporosis without current pathological fracture; E78.5 Hyperlipidemia, unspecified; Z85.46 Personal history of malignant neoplasm of prostate; Z66 Do not resuscitate
CPT/HCPCS: 97110-GP; 97116-GP; 97162-GP; 97166-GO; 97530-GO; 97535-GO; C1713; C1769; G0515-GO; G8978-GP-CJ; G8979-GP-CI; G8987-GO-CK; G8988-GO-CI; J0171; J0690; J1100; J1650; J2001; J2370; J2405; J2704; J3010

== ENCOUNTER → 2018-01-14 | Outpatient (CLI) | payer OTHER, BC | LOC: FIMAGING 12:43 | PROVIDERS: ATTEND Internal Medicine | DX: N63.20 Unspecified lump in the left breast, unspecified quadrant (principal) ==